=== PATIENT | male | born 1970 | race Caucasian/White ===

== ENCOUNTER 2022-07-14 09:23 | Observation (INO) | payer BC ==
[2022-07-14] MEDS ORDERED: KETOROLAC 15 MG/ML 1 ML VIAL IVP STA (09:54)
[2022-07-14] MEDS ORDERED: LABETALOL 5 MG/ML VIAL MDV IVP STA ×2 (09:55→12:34)
[2022-07-14] MEDS ORDERED: hydrALAZINE HCL 20 MG/ML 1 ML VIAL IVP STA ×2 (09:55→10:58)
--- NOTE | 2022-07-14 09:58 | ED ---
General Adult HPI - General Chief complaint: Abdominal Pain Stated complaint: hypertension Time Seen by Provider: 07/14/22 09:25 Source: patient, EMS, RN notes reviewed, old records reviewed Mode of arrival: EMS Limitations: no limitations - History of Present Illness Initial comments: This is a 52-year-old male with a past medical history significant for high blood pressure. Patient states he was on medicine years ago but he stopped it never followed back up. Patient does not currently have a physician. Patient comes in today because he was having some lower back pain on the left for the last week. Patient states started after he was doing some raking in the ER. Patient states anytime he moves is worse. Patient states as he lies still there is no pain. Patient denies any numbness or weakness. Patient denies any dysuria hematuria urinary frequency. Patient went to the clinic to be looked at and they told him that he had high blood pressure so the clinic sent him to be seen in the emergency department. Patient denies any chest pain difficulty breathing shortest breath. Patient denies any lightheadedness dizziness or near syncopal episode. Patient denies any nausea vomiting or diarrhea. Patient denies any history of diabetes or high cholesterol. Patient denies any smoking history. Patient denies family history of heart disease. - Related Data Home Medications Medication Instructions Recorded Confirmed Apple Cider Vinegar Gummy 2 cap PO DAILY 07/14/22 07/14/22 Multivitamins, Thera [Multivitamin 1 tab PO DAILY 07/14/22 07/14/22 (formulary)] Allergies Allergy/AdvReac Type Severity Reaction Status Date / Time No Known Allergies Allergy Verified 07/14/22 12:32 Review of Systems ROS Statement: Those systems with pertinent positive or pertinent negative responses have been documented in the HPI. ROS Other: All systems not noted in ROS Statement are negative. Past Medical History Past Medical History: Hypertension Additional Past Medical History / Comment(s): Gout Past Surgical History: No Surgical Hx Reported Smoking Status: Former smoker Past Alcohol Use History: Occasional Past Drug Use History: Marijuana General Exam - General Exam Comments Initial Comments: GENERAL: Patient is well-developed and well-nourished. Patient is nontoxic and well- hydrated and is in mild distress. ENT: Neck is soft and supple. No significant lymphadenopathy is noted. Oropharynx is clear. Moist mucous membranes. Neck has full range of motion without eliciting any pain. EYES: The sclera were anicteric and conjunctiva were pink and moist. Extraocular movements were intact and pupils were equal round and reactive to light. Eyelids were unremarkable. PULMONARY: Unlabored respirations. Good breath sounds bilaterally. No audible rales rhonchi or wheezing was noted. CARDIOVASCULAR: There is a regular rate and rhythm without any murmurs gallops or rubs. ABDOMEN: Soft and nontender with normal bowel sounds. SKIN: Skin is clear with no lesions or rashes and otherwise unremarkable. NEUROLOGIC: Patient is alert and oriented x3. Cranial nerves II through XII are grossly intact. Motor and sensory are also intact. Normal speech, volume and content. Symmetrical smile. MUSCULOSKELETAL: Normal extremities with adequate strength and full range of motion. No lower extremity swelling or edema. No calf tenderness. Patient had no reproducible back pain on palpation. Patient sat up in bed did not elicit any back pain pat ient twist left and right and did not elicit any back pain. Patient states that was unusual. LYMPHATICS: No significant lymphadenopathy is noted PSYCHIATRIC: Normal psychiatric evaluation. Limitations: no limitations Course Vital Signs 07/14/22 07/14/22 07/14/22 09:27 09:37 10:41 Temperature 98.3 F Pulse Rate 83 83 Respiratory 18 18 Rate Blood Pressure 192/130 178/119 184/121 O2 Sat by Pulse 97 97 Oximetry 07/14/22 12:00 Temperature Pulse Rate 90 Respiratory 18 Rate Blood Pressure 180/117 O2 Sat by Pulse Oximetry Medical Decision Making - Medical Decision Making Chest x-ray was interpreted by me. Chest x-ray shows no acute abnormality. Patient was given hydralazine 20 mg IV and they patient's blood pressure did not improve much. Patient had a repeat dose of 20 mg hydralazine again he came down a little bit but not much per patient remained asymptomatic however. EKG was interpreted by me that shows sinus rhythm at 95 bpm IA interval 160 QRS is 94 QT interval 342 QTC is 395. Patient's EKG shows no ST segment elevation or depression. I gave the patient 20 mg labetalol and blood pressure did not improve and at this point time I felt it safest to keep the patient in the hospital and get his blood pressure control and he'll come up with a primary medical care doctor which he does not have so that he continued continued getting his blood pressure medications and be monitored. Patient remained asymptomatic at the ED stay. I spoke with sounds physician's agreed to admit the patient and the patient wrote admitting orders - Lab Data Result diagrams: 07/14/22 10:05 07/14/22 10:05 Lab Results 07/14/22 07/14/22 07/14/22 Range/Units 10:05 10:05 10:05 WBC 4.0 (3.8-10.6) k/uL RBC 4.51 (4.30-5.90) m/uL Hgb 14.6 (13.0-17.5) gm/dL Hct 41.6 (39.0-53.0) % MCV 92.2 (80.0-100.0) fL MCH 32.3 (25.0-35.0) pg MCHC 35.1 (31.0-37.0) g/dL RDW 13.7 (11.5-15.5) % Plt Count 128 L (150-450) k/uL MPV 7.9 Neutrophils % 69 % Lymphocytes % 22 % Monocytes % 5 % Eosinophils % 1 % Basophils % 1 % Neutrophils # 2.7 (1.3-7.7) k/uL Lymphocytes # 0.9 L (1.0-4.8) k/uL Monocytes # 0.2 (0-1.0) k/uL Eosinophils # 0.0 (0-0.7) k/uL Basophils # 0.0 (0-0.2) k/uL PT 10.4 (9.0-12.0) sec INR 1.0 (<1.2) APTT 22.0 (22.0-30.0) sec Sodium 144 (137-145) mmol/L Potassium 4.1 (3.5-5.1) mmol/L Chloride 113 H (98-107) mmol/L Carbon Dioxide 23 (22-30) mmol/L Anion Gap 8 mmol/L BUN 7 L (9-20) mg/dL Creatinine 0.66 (0.66-1.25) mg/dL Est GFR (CKD-EPI)AfAm >90 (>60 ml/min/1.73 sqM) Est GFR (CKD-EPI)NonAf >90 (>60 ml/min/1.73 sqM) Glucose 102 H (74-99) mg/dL Calcium 8.4 (8.4-10.2) mg/dL Magnesium 1.7 (1.6-2.3) mg/dL Total Bilirubin 0.6 (0.2-1.3) mg/dL AST 44 (17-59) U/L ALT 40 (4-49) U/L Alkaline Phosphatase 70 (38-126) U/L Troponin I (0.000-0.034) ng/mL Total Protein 6.6 (6.3-8.2) g/dL Albumin 4.1 (3.5-5.0) g/dL Urine Color Urine Appearance (Clear) Urine pH (5.0-8.0) Ur Specific [place] (1.001-1.035) Urine Protein (Negative) Urine Glucose (UA) (Negative) Urine Ketones (Negative) Urine Blood (Negative) Urine Nitrite (Negative) Urine Bilirubin (Negative) Urine Urobilinogen (<2.0) mg/dL Ur Leukocyte Esterase (Negative) 07/14/22 07/14/22 Range/Units 10:05 10:05 WBC (3.8-10.6) k/uL RBC (4.30-5.90) m/uL Hgb (13.0-17.5) gm/dL Hct (39.0-53.0) % MCV (80.0-100.0) fL MCH (25.0-35.0) pg MCHC (31.0-37.0) g/dL RDW (11.5-15.5) % Plt Count (150-450) k/uL MPV Neutrophils % % Lymphocytes % % Monocytes % % Eosinophils % % Basophils % % Neutrophils # (1.3-7.7) k/uL Lymphocytes # (1.0-4.8) k/uL Monocytes # (0-1.0) k/uL Eosinophils # (0-0.7) k/uL Basophils # (0-0.2) k/uL PT (9.0-12.0) sec INR (<1.2) APTT (22.0-30.0) sec Sodium (137-145) mmol/L Potassium (3.5-5.1) mmol/L Chloride (98-107) mmol/L Carbon Dioxide (22-30) mmol/L Anion Gap mmol/L BUN (9-20) mg/dL Creatinine (0.66-1.25) mg/dL Est GFR (CKD-EPI)AfAm (>60 ml/min/1.73 sqM) Est GFR (CKD-EPI)NonAf (>60 ml/min/1.73 sqM) Glucose (74-99) mg/dL Calcium (8.4-10.2) mg/dL Magnesium (1.6-2.3) mg/dL Total Bilirubin (0.2-1.3) mg/dL AST (17-59) U/L ALT (4-49) U/L Alkaline Phosphatase (38-126) U/L Troponin I <0.012 (0.000-0.034) ng/mL Total Protein (6.3-8.2) g/dL Albumin (3.5-5.0) g/dL Urine Color Yellow Urine Appearance Clear (Clear) Urine pH 7.0 (5.0-8.0) Ur Specific [place] 1.014 (1.001-1.035) Urine Protein Negative (Negative) Urine Glucose (UA) Negative (Negative) Urine Ketones Negative (Negative) Urine Blood Negative (Negative) Urine Nitrite Negative (Negative) Urine Bilirubin Negative (Negative) Urine Urobilinogen <2.0 (<2.0) mg/dL Ur Leukocyte Esterase Negative (Negative) Critical Care Time Critical Care Time: Yes Total Critical Care Time: 35 Disposition Clinical Impression: Hypertensive urgency, Lumbar strain Disposition: ADMITTED IP TO THIS [facility] Time of Disposition: 13:05
[2022-07-14 10:17] LABS: Basophils % (A) 1 %; Eosinophils % (A) 1 %; HCT 41.6 % (39.0-53.0); HGB 14.6 gm/dL (13.0-17.5); Lymphocytes # (A) 0.9 k/uL (1.0-4.8); Lymphocytes % (A) 22 %; MCH 32.3 pg (25.0-35.0); MCHC 35.1 g/dL (31.0-37.0); MCV 92.2 fL (80.0-100.0); Mean Platelet Volume 7.9; Monocytes # (A) 0.2 k/uL (0-1.0); Monocytes % (A) 5 %; Neutrophils # (A) 2.7 k/uL (1.3-7.7); Neutrophils % (A) 69 %; Platelet Count 128 k/uL (150-450); RBC 4.51 m/uL (4.30-5.90); RDW 13.7 % (11.5-15.5)
[2022-07-14 10:28] LABS: Prothrombin Time 10.4 sec (9.0-12.0)
[2022-07-14 10:29] LABS: ALT 40 U/L (4-49); AST 44 U/L (17-59); African American GFR (CKD) >90 (>60 ml/min/1.73 sqM); Albumin 4.1 g/dL (3.5-5.0); Alkaline Phosphatase 70 U/L (38-126); Anion Gap 8 mmol/L; Blood Urea Nitrogen 7 mg/dL (9-20); Calcium 8.4 mg/dL (8.4-10.2); Carbon Dioxide 23 mmol/L (22-30); Chloride 113 mmol/L (98-107); Glucose 102 mg/dL (74-99); Magnesium 1.7 mg/dL (1.6-2.3); Non-African American GFR(CKD) >90 (>60 ml/min/1.73 sqM); Potassium 4.1 mmol/L (3.5-5.1); Sodium 144 mmol/L (137-145); Total Bilirubin 0.6 mg/dL (0.2-1.3); Total Protein 6.6 g/dL (6.3-8.2)
--- NOTE | 2022-07-14 10:38 | XR ---
EXAMINATION TYPE: XR chest 2V DATE OF EXAM: 07/14/2022 COMPARISON: None INDICATION: Elevated blood pressure TECHNIQUE: Frontal and lateral views of the chest are obtained. FINDINGS: The heart size is normal. The pulmonary vasculature is normal. The lungs are clear. IMPRESSION: 1. No acute pulmonary process.
[2022-07-14 11:45] LABS: Appearance,Urine Clear (Clear); Bilirubin,Urine Negative (Negative); Blood,Urine Negative (Negative); Color,Urine Yellow; Glucose,Urine (UA) Negative (Negative); Ketones,Urine Negative (Negative); Leukocyte Esterase,Urine Negative (Negative); Nitrite,Urine Negative (Negative); Protein,Urine Negative (Negative); Specific Gravity,Urine 1.014 (1.001-1.035); Urobilinogen,Urine <2.0 mg/dL (<2.0)
--- NOTE | 2022-07-14 14:18 | P.HPIM ---
History of Present Illness H&P Date: 07/14/22 History of Presenting Illness: Patient is a very pleasant 52-year-old male with a past medical history of high blood pressure, gout and daily alcohol abuse. He presented to the emergency department with a chief complaint of right flank pain. Patient reports he has been experiencing intermittent pain in his right flank over the past couple of months and was concerned something was wrong with his liver. Patient denied having any fevers, chills, headache, lightheadedness, dizziness, chest pain, palpitations, shortness of breath, cough, congestion, nausea, vomiting, difficu lties with her changes in urinary or bowel function, or experiencing any numbness/tingling/weakness/swelling in his extremities. He reports drinking approximately 6 tall boys per day and reports that he has been drinking since high school but daily for the past 30 years. Patient reports his last drink was yesterday evening and states this is a wakeup call and would like to stop drinking. Upon arrival to the emergency department patient was found to be hypertensive with blood pressure 192/130 and heart rate of 90. EKG was completed showing sinus rhythm at [address] depression in inferior leads II and aVF. CBC revealed thrombocytopenia with platelet count of 128. Coagulation profile and CMP showing no significant abnormalities. Troponin negative at less than 0.012. Chest x-ray negative for acute cardiopulmonary process. Patient reported resolution of previously reported right flank pain. He was given labetalol and hydralazine in the emergency department showing minimal improvement of blood pressure decreasing to 180/117. Patient was admitted under our services with consultation to cardiology. Review of systems: Pertinent positives and negatives as discussed in HPI, a complete review of systems was performed and all other systems are negative. Physical exam: General: Nontoxic, appears stated age, mild distress as patient was diaphoretic and appears anxious and fidgety. Derm: Skin warm, diaphoretic normal coloration for ethnicity. Head: Atraumatic, normocephalic and symmetric. Eyes: EOMs intact, no lid lag, and anicteric sclera Mouth: no lip lesions, mucus membranes moist Cardiovascular: regular rate and rhythm with normal S1S2, no murmur, positive po sterior tibial pulses bilaterally, and cap refill < 2 seconds. Lungs: Respirations even, regular, and unlabored on room air. Lungs CTA bilaterally, no rhonchi, no rales, no wheezing, and no accessory muscle usage. Abdominal: soft, nontender to palpation, no guarding, no appreciable organomegaly. No CVA tenderness. Ext: ROM intact. No gross muscle atrophy, no edema, no contractures Neuro: Speech clear, face symmetrical and CN II-XII grossly intact with no noted focal neuro deficits Psych: Alert and oriented to person, place, time, and situation. Patient appears anxious and fidgety with mild tremor noted to left hand. Assessment and Plan of Care: Alcohol dependence with acute withdrawal Thrombocytopenia likely secondary to above -WA Protocol with symptom triggered medication management with benzodiazepines. -Continuous IV hydration. -Thiamine 100 mg twice a day -Multivitamin daily -Folate 1 mg daily -Seizure, fall, aspiration, and elopement precautions in place. -Consult to case management for assistance in providing patient available resources for inpatient rehabilitation Center versus outpatient community resources. -Continued close monitoring of electrolytes and replace as needed. -Telemetry monitoring. Hypertensive urgency -Hypertensive urgency likely secondary to alcohol withdrawal, however patient does report underlying history of hypertension. -We will treat patient for acute alcohol withdrawal and start patient on amlodipine 5 mg daily. -Continuous telemetry monitoring and Monitor vital signs closely. -Cardiology was consulted. The patient is admitted with an anticipated less than quesada 2 midnight stay for evaluation of hypertensive urgency and alcohol withdrawal CODE STATUS: Full code DVT prophylaxis: heparin Discussed with: patient and RN Anticipated discharge date: 1-[address]: Home versus inpatient rehab A total of 45 minutes was spent on the care of this complex patient more than 50% of the time was spent in counseling and care coordination. I reviewed the documentation as provided by the RIKI above, who is the original author of this note. I agree with the documented assessment and plan, with the following changes: none Past Medical History Past Medical History: Hypertension Additional Past Medical History / Comment(s): Gout Past Surgical History: No Surgical Hx Reported Smoking Status: Former smoker Past Alcohol Use History: Occasional Past Drug Use History: Marijuana Medications and Allergies Home Medications Medication Instructions Recorded Confirmed Type Apple Cider Vinegar Gummy 2 cap PO DAILY 07/14/22 07/14/22 History Multivitamins, Thera [Multivitamin 1 tab PO DAILY 07/14/22 07/14/22 History (formulary)] Losartan [Cozaar] 50 mg PO DAILY 30 Days #30 tab 07/16/22 Rx Metoprolol Tartrate [Lopressor] 50 mg PO BID 30 Days #60 tab 07/16/22 Rx amLODIPine [Norvasc] 10 mg PO DAILY 30 Days #30 tab 07/16/22 Rx hydrOXYzine HCL [Atarax] 50 mg PO Q6H PRN #60 tablet 07/16/22 Rx Allergies Allergy/AdvReac Type Severity Reaction Status Date / Time No Known Allergies Allergy Verified 07/14/22 12:32 Physical Exam Vitals: Vital Signs Temp Pulse Resp BP Pulse Ox 07/14/22 13:26 160/117 07/14/22 12:00 90 18 180/117 07/14/22 10:41 184/121 07/14/22 09:37 83 18 178/119 97 07/14/22 09:27 98.3 F 83 18 192/130 97 Intake and Output 07/13/22 07/14/22 07/14/22 22:59 06:59 14:59 Other: Weight 124.738 kg Results CBC & Chem 7: 07/14/22 10:05 07/14/22 10:05 Labs: Abnormal Lab Results - Last 24 Hours (Table) 07/14/22 07/14/22 Range/Units 10:05 10:05 Plt Count 128 L (150-450) k/uL Lymphocytes # 0.9 L (1.0-4.8) k/uL Chloride 113 H (98-107) mmol/L BUN 7 L (9-20) mg/dL Glucose 102 H (74-99) mg/dL
[2022-07-14] MEDS ORDERED: LORazepam 1 MG TAB PO PRN ×4 (14:19)
[2022-07-14] MEDS ORDERED: LORazepam 2 MG/ML INJ IV PRN (14:19)
[2022-07-14] MEDS ORDERED: LORazepam 0.5 MG TAB PO PRN (14:19)
[2022-07-14] MEDS ORDERED: THIAMINE 100 MG/ML 2 ML VIAL IM STA (14:19)
[2022-07-14] MEDS: SODIUM CHLORIDE 0.9% 1,000 ML IV SCH ×3 (15:08→23:59)
[2022-07-14] MEDS: MAGNESIUM SULFATE-D5W PMX 1 GM in DEXTROSE/WATER 1 100ML.BAG IVPB SCH ×2 (15:08→17:39)
[2022-07-14] MEDS: amLODIPine 5 MG TAB PO SCH (17:40)
[2022-07-14] MEDS: KETOROLAC 15 MG/ML 1 ML VIAL IVP SCH ×2 (17:40→23:59)
[2022-07-14] MEDS ORDERED: cloNIDine HCL 0.2 MG TAB PO PRN (22:18)
[2022-07-14] MEDS: HEPARIN SODIUM,PORCINE/PF 5,000 UNIT/0.5 ML SYRINGE SQ SCH (23:58)
[2022-07-15] MEDS: KETOROLAC 15 MG/ML 1 ML VIAL IVP SCH ×4 (06:55→22:56)
[2022-07-15] MEDS: SODIUM CHLORIDE 0.9% 1,000 ML IV SCH ×2 (06:56→20:29)
[2022-07-15] MEDS: amLODIPine 5 MG TAB PO SCH (08:27)
[2022-07-15] MEDS: METOPROLOL TARTRATE 50 MG TAB PO SCH ×3 (08:27→20:29)
[2022-07-15] MEDS: MULTIVITAMINS, THERA 1 EACH TAB PO SCH (08:27)
[2022-07-15] MEDS: THIAMINE 100 MG TAB PO SCH (08:27)
[2022-07-15] MEDS: FOLIC ACID 1 MG TAB PO SCH (08:27)
[2022-07-15] MEDS: HEPARIN SODIUM,PORCINE/PF 5,000 UNIT/0.5 ML SYRINGE SQ SCH ×3 (08:27→22:56)
--- NOTE | 2022-07-15 10:20 | P.CRDCN ---
History of Present Illness History of present illness: HISTORY OF PRESENTING ILLNESS This is a pleasant 52-year-old male past medical history significant for hypertension, daily alcohol use. 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 We have been asked to see in consultation for hypertensive urgency. Patient presents emergency department with complaints of right flank pain. He states that he has been intermittently, on and off for a few months. He denies any chest pain, shortness of breath, lightheadedness, dizziness, palpitations, nausea, vomiting, fever, cough or chills. He currently drinks 6 beers daily, tall boys. Drinking alcohol daily for about 30 years. He does endorse a history of hypertension as previously on medications but stop taking his meds. He currently has not seen a provider in many years. He denies any history of CAD, [place], stroke, diabetes. He is a former tobacco smoker. Denies any known family history of coronary disease. On admission patient's blood pressure was significantly elevated at 190s/100s. He was given IV labetalol and started on amlodipine 5 mg daily DIAGNOSTICS * EKG reveals sinus rhythm, heart rate 95, some mild ST depression in leads II and aVF. No prior EKG to compare * Telemetry tracings indicate sinus rhythm * Chest xray no acute cardiopulmonary process * Laboratory reviewed, troponins negative, platelet count 128, sodium 144, potassium 4.1, BUN 7, serum creatinine 0.6, magnesium 1.7 * Current home medications include a multivitamin and apple cider vinegar gummies REVIEW OF SYSTEMS At the time of my exam: CONSTITUTIONAL: Denies fever or chills. +right flank pain CARDIOVASCULAR: Denies chest pain, shortness of breath, orthopnea, PND or palpitations. RESPIRATORY: Denies cough. GASTROINTESTINAL: Denies abdominal pain, diarrhea, constipation, nausea or vomiting. MUSCULOSKELETAL: Denies myalgias. NEUROLOGIC: Denies numbness, tingling, headacbe or weakness. ENDOCRINE: Denies fatigue, weight change, polydipsia or polyurina. GENITOURINARY: Denies burning, hematuria or urgency with micturation. HEMATOLOGIC: Denies history of anemia or bleeding. PHYSICAL EXAMINATION Blood pressure 146/98, heart rate 70, afebrile, saturations 98% on room air CONSTITUTIONAL: No apparent distress. HEENT: Head is normocephalic. Pupils are equal, round. Sclerae anicteric. Mucous membranes of the mouth are moist. No JVD. No carotid bruit. CHEST EXAMINATION: Lungs are clear to auscultation. No chest wall tenderness is noted on palpation or with deep breathing. HEART EXAMINATION: Regular rate and rhythm. S1, S2 heard. No murmurs, gallops or rub. ABDOMEN: Soft, nontender. Positive bowel sounds. EXTREMITIES: 2+ peripheral pulses, no lower extremity edema and no calf tenderness. NEUROLOGIC EXAMINATION: Patient is awake, alert and oriented x3. ASSESSMENT Hypertensive urgency Right flank pain Alcohol dependence PLAN Start metoprolol tartrate 50mg TID Continue amlodipine Obtain 2D echocardiogram and doppler study to assess cardiac structure and function. Recommend outpatient follow up, stress test can be completed as an outpatient Thank you kindly for this consultation Nurse practitioner note has been reviewed by physician. Signing provider agrees with the documented findings, assessment, and plan of care. Past Medical History Past Medical History: Hypertension Additional Past Medical History / Comment(s): Gout History of Any Multi-Drug Resistant Organisms: None Reported Past Surgical History: No Surgical Hx Reported Smoking Status: Former smoker Past Alcohol Use History: Occasional Past Drug Use History: Marijuana Medications and Allergies Home Medications Medication Instructions Recorded Confirmed Type Apple Cider Vinegar Gummy 2 cap PO DAILY 07/14/22 07/14/22 History Multivitamins, Thera [Multivitamin 1 tab PO DAILY 07/14/22 07/14/22 History (formulary)] Allergies Allergy/AdvReac Type Severity Reaction Status Date / Time No Known Allergies Allergy Verified 07/14/22 12:32 Physical Exam Vitals: Vital Signs Temp Pulse Pulse Resp BP BP Pulse Ox 07/15/22 02:03 98.2 F 72 17 144/88 98 07/14/22 22:02 98.1 F 77 18 199/111 98 07/14/22 21:14 171/110 07/14/22 19:54 172/114 07/14/22 18:57 181/119 07/14/22 17:00 171/117 07/14/22 16:00 176/123 07/14/22 15:00 83 18 182/114 97 07/14/22 13:26 160/117 07/14/22 12:00 90 18 180/117 07/14/22 10:41 184/121 07/14/22 09:37 83 18 178/119 97 07/14/22 09:27 98.3 F 83 18 192/130 97 Intake and Output 07/14/22 07/15/22 07/15/22 22:59 06:59 14:59 Other: # Voids 1 1 Weight 124.738 kg Results 07/14/22 10:05 07/14/22 10:05 Cardiac Enzymes 07/14/22 07/14/22 Range/Units 10:05 10:05 AST 44 (17-59) U/L Troponin I <0.012 (0.000-0.034) ng/mL Coagulation 07/14/22 Range/Units 10:05 PT 10.4 (9.0-12.0) sec APTT 22.0 (22.0-30.0) sec CBC 07/14/22 Range/Units 10:05 WBC 4.0 (3.8-10.6) k/uL RBC 4.51 (4.30-5.90) m/uL Hgb 14.6 (13.0-17.5) gm/dL Hct 41.6 (39.0-53.0) % Plt Count 128 L (150-450) k/uL Comprehensive Metabolic Panel 07/14/22 Range/Units 10:05 Sodium 144 (137-145) mmol/L Potassium 4.1 (3.5-5.1) mmol/L Chloride 113 H (98-107) mmol/L Carbon Dioxide 23 (22-30) mmol/L BUN 7 L (9-20) mg/dL Creatinine 0.66 (0.66-1.25) mg/dL Glucose 102 H (74-99) mg/dL Calcium 8.4 (8.4-10.2) mg/dL AST 44 (17-59) U/L ALT 40 (4-49) U/L Alkaline Phosphatase 70 (38-126) U/L Total Protein 6.6 (6.3-8.2) g/dL Albumin 4.1 (3.5-5.0) g/dL Current Medications Generic Name Dose Route Start Last Admin Trade Name Freq PRN Reason Stop Dose Admin Amlodipine Besylate 5 mg 07/14/22 16:30 07/14/22 17:40 Amlodipine 5 Mg Tab PO 5 mg DAILY BOLIVAR Administration Clonidine 0.2 mg 07/14/22 22:18 07/14/22 22:45 Clonidine Hcl 0.2 Mg Tab PO 0.2 mg QID PRN Administration Blood Pressure - High Folic Acid 1 mg 07/15/22 09:00 Folic Acid 1 Mg Tab PO DAILY BOLIVAR Heparin Sodium (Porcine) 5,000 unit 07/15/22 00:00 07/14/22 23:58 Heparin Sodium,Porcine/Pf 5,000 Unit/0.5 Ml Syringe SQ 5,000 unit Q8HR BOLIVAR Administration Sodium Chloride 1,000 mls @ 130 mls/hr 07/14/22 14:45 07/15/22 06:56 Saline 0.9% IV 130 mls/hr .[id number] BOLIVAR Administration Ketorolac Tromethamine 15 mg 07/14/22 18:00 07/15/22 06:55 Ketorolac 15 Mg/Ml 1 Ml Vial IVP 07/17/22 13:08 Not Given Q6HR BOLIVAR Lorazepam 0.5 mg 07/14/22 14:19 Lorazepam 0.5 Mg Tab PO Q4HR PRN Ciwa 4 To 5 Lorazepam 1 mg 07/14/22 14:19 07/14/22 16:27 Lorazepam 1 Mg Tab PO 1 mg Q4HR PRN Administration Ciwa 6 To 7 Lorazepam 2 mg 07/14/22 14:19 Lorazepam 1 Mg Tab PO Q2HR PRN Ciwa 10 or greater Lorazepam 2 mg 07/14/22 14:19 Lorazepam 1 Mg Tab PO Q3HR PRN Ciwa 8 To 9 Lorazepam 1 mg 07/14/22 14:19 Lorazepam 1 Mg Tab PO Q1HR PRN Alcohol Withdrawal Lorazepam 2 mg 07/14/22 14:19 Lorazepam 2 Mg/Ml Inj IV Q6HR PRN Seizures Multivitamins 1 each 07/15/22 09:00 Multivitamins, Thera 1 Each Tab PO DAILY BOLIVAR Thiamine HCl 100 mg 07/15/22 09:00 Thiamine 100 Mg Tab PO DAILY BOLIVAR Intake and Output 07/14/22 07/15/22 07/15/22 22:59 06:59 14:59 Other: # Voids 1 1 Weight 124.738 kg 07/14/22 10:05 07/14/22 10:05
--- NOTE | 2022-07-15 18:54 | P.PN ---
Subjective Progress Note Date: 07/15/22 Hospital course: Patient is a very pleasant 52-year-old male with a past medical history of high blood pressure, gout and daily alcohol abuse. He presented to the emergency department with a chief complaint of right flank pain. Patient reports he has been experiencing intermittent pain in his right flank over the past couple of months and was concerned something was wrong with his liver. Patient denied having any fevers, chills, headache, lightheadedness, dizziness, chest pain, palpitations, shortness of breath, cough, congestion, nausea, vomiting, difficulties with her changes in urinary or bowel function, or experiencing any numbness/tingling/weakness/swelling in his extremities. He reports drinking approximately 6 tall boys per day and reports that he has been drinking since high school but daily for the past 30 years. Patient reports his last drink was yesterday evening and states this is a wakeup call and would like to stop drinking. Upon arrival to the emergency department patient was found to be hypertensive with blood pressure 192/130 and heart rate of 90. EKG was completed showing sinus rhythm at [address] depression in inferior leads II and aVF. CBC revealed thrombocytopenia with platelet count of 128. Coagulation profile and CMP showing no significant abnormalities. Troponin negative at less than 0.012. Chest x-ray negative for acute cardiopulmonary process. Patient reported resolution of previously reported right flank pain. He was given labetalol and hydralazine in the emergency department showing minimal improvement of blood pressure decreasing to 180/117. Patient was admitted under our services with consultation to cardiology. He was monitored overnight and troponins were trended all negative at less than 0.0123 draws. Blood pressures continue to be elevated but she'll improvement this morning at 146/98. Cardiology evaluated and admitted metoprolol 50 mg twice a day to current medication regimen. Physical exam: Patient seen and fully evaluated at bedside this morning. He currently reports that pain in right side/flank remains resolved. Patient states that he feels anxious and fidgety but denies having any other complaints at this time. Blood pressures continue to be elevated but showing improvement this morning at 146/98. Cardiology evaluated and admitted metoprolol 50 mg twice a day to current medication regimen and ordered for echocardiogram to be completed. General: Nontoxic, appears stated age, no acute distress. Derm: Skin warm, diaphoretic normal coloration for ethnicity. Head: Atraumatic, normocephalic and symmetric. Eyes: EOMs intact, no lid lag, and anicteric sclera Mouth: no lip lesions, mucus membranes moist Cardiovascular: regular rate and rhythm with normal S1S2, no murmur, positive posterior tibial pulses bilaterally, and cap refill < 2 seconds. Lungs: Respirations even, regular, and unlabored on room air. Lungs CTA bilaterally, no rhonchi, no rales, no wheezing, and no accessory muscle usage. Abdominal: soft, nontender to palpation, no guarding, no appreciable o rganomegaly. No CVA tenderness. Ext: ROM intact. No gross muscle atrophy, no edema, no contractures Neuro: Speech clear, face symmetrical and CN II-XII grossly intact with no noted focal neuro deficits. No tremors noted. Psych: Alert and oriented to person, place, time, and situation. Patient reports feeling anxious and fidgety. Assessment and Plan of Care: Alcohol dependence with acute withdrawal Thrombocytopenia likely secondary to above -[facility] Protocol with symptom triggered medication management with benzodiazepines. -Continuous IV hydration. -Thiamine 100 mg twice a day -Multivitamin daily -Folate 1 mg daily -Seizure, fall, aspiration, and elopement precautions in place. -Consult to case management for assistance in providing patient available resources for inpatient rehabilitation Center versus outpatient community resources. -Continued close monitoring of electrolytes and replace as needed. -Telemetry monitoring. Hypertensive urgency -Hypertensive urgency likely secondary to alcohol withdrawal, however patient does report underlying history of hypertension. -We will treat patient for acute alcohol withdrawal and start patient on amlodipine 5 mg daily. -Continuous telemetry monitoring and Monitor vital signs closely. -Cardiology was consulted. CODE STATUS: Full code DVT prophylaxis: heparin Discussed with: patient and RN Anticipated discharge date: Later today versus tomorrow pending echocardiogram results. Anticipated discharge place: Home versus inpatient rehab A total of 33 minutes was spent on the care of this complex patient more than 50% of the time was spent in counseling and care coordination. I reviewed the documentation as provided by the RIKI above, who is the original author of this note. I agree with the documented assessment and plan, with the following changes: none Objective - Vital Signs Vital signs: Vital Signs Temp 97.8 F 07/15/22 16:31 Pulse 73 07/15/22 16:31 Resp 20 07/15/22 16:31 BP 172/110 11/30/22 16:31 Pulse Ox 95 07/15/22 16:31 FiO2 Intake & Output 07/14/22 07/15/22 07/15/22 18:59 06:59 18:59 Weight 124.738 kg 124.738 kg Other: # Voids 1 2 - Labs CBC & Chem 7: 07/14/22 10:05 07/14/22 10:05
[2022-07-15] MEDS ORDERED: amLODIPine 5 MG TAB PO STA (18:56)
--- NOTE | 2022-07-15 21:19 | CA ---
Transthoracic Echo Report Name: John Looney Age: 52 Gender: M : 1970 Exam Date: 07/15/2022 10:55 Exam Location: [place] [facility] Ht (in): 74 Wt (lb): 274 Ordering Physician: Cecilia Romero Attending/Referring Phys: Obstetrics Gynecology Md Annalee Cevallos, TANVI Procedure CPT: Indications: hypertensive urgency, etoh Cardiac Hx: Technical Quality: Contrast 1: Total Dose (mL): Contrast 2: Total Dose (mL): MEASUREMENTS (Male / Female) Normal Values 2D ECHO LV Diastolic Diameter PLAX 5.2 cm 4.2 - 5.9 / 3.9 - 5.3 cm LV Systolic Diameter PLAX 3.5 cm IVS Diastolic Thickness 1.4 cm 0.6 - 1.0 / 0.6 - 0.9 cm LVPW Diastolic Thickness 1.6 cm 0.6 - 1.0 / 0.6 - 0.9 cm LV Relative Wall Thickness 0.6 RV Internal Dim ED PLAX 3.1 cm LA Systolic Diameter LX 3.7 cm 3.0 - 4.0 / 2.7 - 3.8 cm M-MODE Aortic Root Diameter MM 4.1 cm LA Systolic Diameter MM 4.1 cm LA Ao Ratio MM 1.0 MV E Point Septal Separation 0.6 cm AV Cusp Separation MM 2.9 cm DOPPLER MV Area PHT 5.7 cm??? Mitral E Point Velocity 52.7 cm/s Mitral A Point Velocity 86.3 cm/s Mitral E to A Ratio 0.6 MV Deceleration Time 134.0 ms MV E' Velocity 7.4 cm/s Mitral E to MV E' Ratio 7.1 FINDINGS Left Ventricle Moderately increased septal wall thickness. Left ventricular ejection fraction is estimated at 55% left ventricular cavity size normal. Right Ventricle Normal right ventricular size and function. Right ventricular systolic pressure within normal limits. Right Atrium Normal right atrial size. Left Atrium Mildly increased left atrial area. Mitral Valve Structurally normal mitral valve. Mild mitral regurgitation. Aortic Valve Trileaflet aortic valve. Tricuspid Valve Structurally normal tricuspid valve. Pulmonic Valve Structurally normal pulmonic valve. Trace to mild pulmonic regurgitation. Pericardium Small pericardial effusion. Aorta Normal size aortic root and proximal ascending aorta. CONCLUSIONS Normal LV size and systolic function. Mild mitral and tricuspid insufficiency. Cannot exclude small to trivial pericardial effusion. Previewed by: Dr. Alexander Dobbs MD (Electronically Signed) Final Date: 15 July 2022 21:19
[2022-07-16] MEDS: SODIUM CHLORIDE 0.9% 1,000 ML IV SCH (06:08)
[2022-07-16] MEDS: KETOROLAC 15 MG/ML 1 ML VIAL IVP SCH ×2 (06:08→13:26)
[2022-07-16 08:18] VITALS: RESP 20
[2022-07-16] MEDS: FOLIC ACID 1 MG TAB PO SCH (08:33)
[2022-07-16] MEDS: MULTIVITAMINS, THERA 1 EACH TAB PO SCH (08:33)
[2022-07-16] MEDS: THIAMINE 100 MG TAB PO SCH (08:34)
[2022-07-16] MEDS: HEPARIN SODIUM,PORCINE/PF 5,000 UNIT/0.5 ML SYRINGE SQ SCH (08:35)
[2022-07-16] MEDS ORDERED: METOPROLOL TARTRATE 50 MG TAB PO SCH (09:00)
[2022-07-16] MEDS ORDERED: LOSARTAN 50 MG TAB PO SCH (09:00)
[2022-07-16] MEDS ORDERED: amLODIPine 10 MG TAB PO SCH (09:00)
--- NOTE | 2022-07-16 09:53 | P.PN ---
Subjective This is a pleasant 52-year-old male past medical history significant for hypertension, daily alcohol use. He does not follow with medical billing coordinator. We have been asked to see in consultation for hypertensive urgency. Patient presents emergency department with complaints of right flank pain. He states that he has been intermittently, on and off for a few months. He denies any chest pain, shortness of breath, lightheadedness, dizziness, palpitations, nausea, vomiting, fever, cough or chills. He currently drinks 6 beers daily, tall boys. Drinking alcohol daily for about 30 years. He does endorse a history of hypertension as previously on medications but stop taking his meds. He currently has not seen a provider in many years. He denies any history of CAD, [place], stroke, diabetes. He is a former tobacco smoker. Denies any known family history of coronary disease. On admission patient's blood pressure was significantly elevated at 190s/100s. He was given IV labetalol and started on amlodipine 5 mg daily 07/16/2022 Patient seen and examined at bedside. No acute distress. Denies any chest pain or shortness of breath. BP has improved, but elevated 170/97. Amlodipine increased to 10mg daily. Echocardiogram revealed EF 55%, mild MR, mild TR PHYSICAL EXAMINATION Vitals reviewed CONSTITUTIONAL: No apparent distress. HEENT: Head is normocephalic. No JVD. CHEST EXAMINATION: Lungs are clear to auscultation. No chest wall tenderness is noted on palpation or with deep breathing. HEART EXAMINATION: Regular rate and rhythm. S1, S2 heard. No murmurs, gallops or rub. ABDOMEN: Soft, nontender. Positive bowel sounds. EXTREMITIES: 2+ peripheral pulses, no lower extremity edema and no calf tenderness. NEUROLOGIC EXAMINATION: Patient is awake, alert and oriented x3. ASSESSMENT Hypertensive urgency Right flank pain Alcohol dependence PLAN Continue amlodipine at 10mg daily Decrease metoprolol 50mg BID Add Losartan 50mg daily Echo obtained and reviewed. Recommend outpatient follow up, stress test can be completed as an outpatient Discharge per primary and clearance from other consultants Please re-consult if needed. Nurse practitioner note has been reviewed by physician. Signing provider agrees with the documented findings, assessment, and plan of care. Objective - Vital Signs Vital signs: Vital Signs Temp 97.5 F L 07/16/22 07:00 Pulse 61 07/16/22 07:00 Resp 20 07/16/22 07:00 BP 170/97 07/16/22 07:00 Pulse Ox 97 07/16/22 07:00 FiO2 Intake & Output 07/15/22 07/16/22 07/16/22 18:59 06:59 18:59 Other: # Voids 2 1 - Labs CBC & Chem 7: 07/14/22 10:05 07/14/22 10:05
[2022-07-16 14:31] VITALS: BP 134/87; PULSE 69; TEMP 97.6
--- NOTE | 2022-07-16 16:26 | P.DS ---
Providers Date of admission: 07/14/22 13:06 Expected date of discharge: 07/16/22 Attending physician: Traci Smallwood MD Consults: 07/14/22 13:05 Consult Physician Urgent Consulting Provider: [facility] Consult Reason/Comments: Hypertensive urgency Do you want consulting provider notified?: Yes Primary care physician: Mehdi [facility] [facility] Hospital Course: Discharge Diagnosis: Alcohol dependence with acute withdrawal. Thrombocytopenia likely secondary to above. Hypertensive urgency. Hospital Course: Patient is a very pleasant 52-year-old male with a past medical history of high blood pressure, gout and daily alcohol abuse. He presented to the emergency department with a chief complaint of right flank pain. Patient reports he has been experiencing intermittent pain in his right flank over the past couple of months and was concerned something was wrong with his liver. Patient denied having any fevers, chills, headache, lightheadedness, dizziness, chest pain, palpitations, shortness of breath, cough, congestion, nausea, vomiting, difficulties with her changes in urinary or bowel function, or experiencing any numbness/tingling/weakness/swelling in his extremities. He reports drinking approximately 6 tall boys per day and reports that he has been drinking since high school but daily for the past 30 years. Patient reports his last drink was yesterday evening and states this is a wakeup call and would like to stop drinking. Upon arrival to the emergency department patient was found to be hypertensive with blood pressure 192/130 and heart rate of 90. EKG was completed showing sinus rhythm at [address] depression in inferior leads II and aVF. CBC revealed thrombocytopenia with platelet count of 128. Coagulation profile and CMP showing no significant abnormalities. Troponin negative at less than 0.012. Chest x-ray negative for acute cardiopulmonary process. Patient reported resolution of previously reported right flank pain. He was given labetalol and hydralazine in the emergency department showing minimal improvement of blood pressure decreasing to 180/117. Patient was admitted under our services with consultation to cardiology. He was monitored overnight and troponins were trended all negative at less than 0.0123 draws. Blood pressures continue to be elevated despite metoprolol, losartan, and amlodipine. Echocardiogram revealed EF of 55% with mild mitral and tricuspid insufficiency. Cardiology recommended outpatient follow-up in our office once blood pressure falls below 160 systolic. Discussed with RN that hypertensive urgency is multifactorial and due to underlying hypertension but also acute alcohol withdrawal. RN administered 2 mg of Ativan as advised. Patient had significant improvement in anxiety and blood pressure decreasing from 170/97 down to 134/87. Patient declining inpatient rehab at this time and requesting discharge home. Patient strongly advised against any and all alcohol use. Patient given information on outpatient resources available to him. Patient provided with prescription for hydroxyzine to be taken as needed for anxiety. Patient also instructed to monitor blood pressures closely taken twice daily and documenting a daily log/journal and bring with him to his next doctor's appointment as adjustments may be needed to his current blood pressure medication regimen. Patient to follow up outpatient with PCP in 1-2 days and with cardiology in 2 weeks. Physical exam: General: Nontoxic, appears stated age, no acute distress. Derm: Skin warm, diaphoretic normal coloration for ethnicity. Head: Atraumatic, normocephalic and symmetric. Eyes: EOMs intact, no lid lag, and anicteric sclera Mouth: no lip lesions, mucus membranes moist Cardiovascular: regular rate and rhythm with normal S1S2, no murmur, positive posterior tibial pulses bilaterally, and cap refill < 2 seconds. Lungs: Respirations even, regular, and unlabored on room air. Lungs CTA bilaterally, no rhonchi, no rales, no wheezing, and no accessory muscle usage. Abdominal: soft, nontender to palpation, no guarding, no appreciable organomegaly. No CVA tenderness. Ext: ROM intact. No gross muscle atrophy, no edema, no contractures Neuro: Speech clear, face symmetrical and CN II-XII grossly intact with no noted focal neuro deficits. No tremors noted. Psych: Alert and oriented to person, place, time, and situation. Patient reports feeling anxious and fidgety. A total of 35 minutes of time were spent preparing this complex discharge summary. Pt was discharged on 07/16/22 at 4:25 PM. I reviewed the documentation as provided by the RIKI above, who is the original author of this note. I agree with the documented assessment and plan, with the following changes: none Patient Condition at Discharge: Stable Plan - Discharge Summary New Discharge Prescriptions: New Losartan [Cozaar] 50 mg PO DAILY 30 Days #30 tab amLODIPine [Norvasc] 10 mg PO DAILY 30 Days #30 tab hydrOXYzine HCL [Atarax] 50 mg PO Q6H PRN #60 tablet PRN Reason: Anxiety Metoprolol Tartrate [Lopressor] 50 mg PO BID 30 Days #60 tab Continue Apple Cider Vinegar Gummy 2 cap PO DAILY Multivitamins, Thera [Multivitamin (formulary)] 1 tab PO DAILY Discharge Medication List Apple Cider Vinegar Gummy 2 cap PO DAILY 07/14/22 [History] Multivitamins, Thera [Multivitamin (formulary)] 1 tab PO DAILY 07/14/22 [History] Losartan [Cozaar] 50 mg PO DAILY 30 Days #30 tab 07/16/22 [Rx] Metoprolol Tartrate [Lopressor] 50 mg PO BID 30 Days #60 tab 07/16/22 [Rx] amLODIPine [Norvasc] 10 mg PO DAILY 30 Days #30 tab 07/16/22 [Rx] hydrOXYzine HCL [Atarax] 50 mg PO Q6H PRN #60 tablet 07/16/22 [Rx] Follow up Appointment(s)/Referral(s): Alexander Dobbs MD [STAFF PHYSICIAN] - 2 Weeks Mehdi Sosa DO [Primary Care Provider] - 07/20/22 9:30 am (Will be seen by a MASTER ELECTRICIAN Javy Cuellar) Patient Instructions/Handouts: Abuse of Alcohol (DC), Alcohol Withdrawal (DC), Hypertensive Crisis (DC), Hypertension (DC) Activity/Diet/Wound Care/Special Instructions: Activity: As tolerated. Take breaks as needed. Diet: Heart healthy and carb consistent diet. Avoid salts, or foods with hidden salts such as canned or boxed foods and frozen dinners. Extra salt makes your heart work harder and traps the fluid in your body for longer. Special Instructions: Take all of your medications as directed and remember to keep all of your doctor's appointments and follow-up as needed. Please avoid any and all alcoholic beverages. Good luck on your journey towards sobriety. It is important to monitor blood pressure twice daily and document these findings and a daily log/journal to bring with you to your next doctor's appoi ntment. Additional changes may be needed to your blood pressure medication regimen. Thank you for allowing us to participate in your care, it was truly a pleasure having you for our patient!!! Discharge/Stand Alone Forms: AA Meetings [place], Outpatient Counseling, Inp Substance Abuse Facilities Discharge Disposition: HOME SELF-CARE
== END 2022-07-16 16:50 | disposition home or self-care (01) ==
LOC: EC 09:23 → 6NMEDSUR 13:06
PROVIDERS: ADMIT Family Medicine; ATTEND Family Medicine
DX: F10.230 Alcohol dependence with withdrawal, uncomplicated (principal); D69.59 Other secondary thrombocytopenia; I16.0 Hypertensive urgency; S39.012A Strain of muscle, fascia and tendon of lower back, initial encounter; I10 Essential (primary) hypertension; M10.9 Gout, unspecified; I31.39 Other pericardial effusion (noninflammatory); I37.1 Nonrheumatic pulmonary valve insufficiency; I34.0 Nonrheumatic mitral (valve) insufficiency; F12.90 Cannabis use, unspecified, uncomplicated; Z87.891 Personal history of nicotine dependence; Z79.899 Other long term (current) drug therapy; X50.3XXA Overexertion from repetitive movements, initial encounter; Y93.H1 Activity, digging, shoveling and raking
CPT/HCPCS: 96361 ×2; 96372 ×3; 96376; 96365; 96366; 96375; 99285; 36415; 93005; 93306; 80053; 83735; 84484; 85025; 85610; 85730; 81003; 71046; G0378 ×3; J0360; J3411; J3475; J1885; J1644 ×2

== ENCOUNTER 2024-01-20 10:20 | Emergency (ER) | payer BC ==
[2024-01-20] MEDS: amLODIPine 10 MG TAB PO STA (11:06)
[2024-01-20 11:52] LABS: Basophils % (A) 0 %; Eosinophils # (A) 0.1 k/uL (0-0.7); Eosinophils % (A) 1 %; HCT 43.1 % (39.0-53.0); Lymphocytes # (A) 1.2 k/uL (1.0-4.8); Lymphocytes % (A) 24 %; MCH 31.2 pg (25.0-35.0); MCHC 34.7 g/dL (31.0-37.0); MCV 89.9 fL (80.0-100.0); Mean Platelet Volume 8.1; Monocytes # (A) 0.3 k/uL (0-1.0); Monocytes % (A) 7 %; Neutrophils # (A) 3.4 k/uL (1.3-7.7); Neutrophils % (A) 66 %; Platelet Count 171 k/uL (150-450); RDW 13.1 % (11.5-15.5); WBC 5.2 k/uL (3.8-10.6)
[2024-01-20 12:06] LABS: African American GFR (CKD) >90 (>60 ml/min/1.73 sqM); Anion Gap 7 mmol/L; Blood Urea Nitrogen 14 mg/dL (9-20); Calcium 9.6 mg/dL (8.4-10.2); Carbon Dioxide 25 mmol/L (22-30); Chloride 106 mmol/L (98-107); Glucose 93 mg/dL (74-99); Non-African American GFR(CKD) >90 (>60 ml/min/1.73 sqM); Potassium 4.4 mmol/L (3.5-5.1); Sodium 138 mmol/L (137-145)
[2024-01-20 12:29] VITALS: PULSE 63
--- NOTE | 2024-01-20 12:57 | ED ---
General Adult HPI - General Chief complaint: Dizziness Stated complaint: Hypertension Time Seen by Provider: 01/20/24 10:50 Source: patient, RN notes reviewed, old records reviewed Mode of arrival: ambulatory Limitations: no limitations - History of Present Illness Initial comments: Patient is a 53-year-old male who presents emergency department complaining of hypertension. He felt lightheaded yesterday and checked his blood pressure. Was elevated with systolics in the 170s. States he checked it again today and while he was asymptomatic, pressure was still elevated in the 150s to 160s. Presents for further evaluation at this time. Denies any chest pain or shortness of breath. Denies lightheadedness currently. Denies headache. D enies abdominal pain, nausea, vomiting. States he was previously diagnosed with hypertension and prescribed antihypertensive medications which he has not taken in a few months. Does not follow-up with her PCP. Presents for further evaluation at this time. Previously had hypertensive urgency, which is why he presents with his for evaluation. - Related Data Previous Rx's Medication Instructions Recorded amLODIPine [Norvasc] 10 mg PO DAILY 30 Days #30 tablet 01/20/24 Allergies Allergy/AdvReac Type Severity Reaction Status Date / Time No Known Allergies Allergy Verified 01/20/24 11:32 Review of Systems ROS Statement: Those systems with pertinent positive or pertinent negative responses have been documented in the HPI. Review of Systems: CONST: Denies fever EYES: Denies blurry vision ENT: Denies nasal congestion C/V: Denies Chest pain RESP: Denies shortness of breath GI: Denies abdominal pain : Denies dysuria SKIN: Denies rash. MSK: Denies joint pain. NEURO: Denies headache ROS Other: All systems not noted in ROS Statement are negative. Past Medical History Past Medical History: Hypertension Additional Past Medical History / Comment(s): Gout History of Any Multi-Drug Resistant Organisms: None Reported Past Surgical History: No Surgical Hx Reported Smoking Status: Former smoker Past Alcohol Use History: Occasional Past Drug Use History: Marijuana General Exam - General Exam Comments Initial Comments: General: Appears in no acute distress. HEAD: Normal with no signs of head trauma. EYES: PERRLA, EOMI, conjunctiva normal, no discharge. ENT: Hearing grossly intact, normal oropharynx. RESPIRATORY: Clear breath sounds bilaterally. No wheezes, rales, or rhonchi. C/V: Regular rate and rhythm. S1 and S2 auscultated, no edema, peripheral pulses 2+ and intact throughout ABD: Abd is soft, nontender, nondistended EXT: Normal range of motion, no obvious deformity SKIN: No rashes or lesions observed on exposed skin. NEURO: Alert and oriented x 4. GCS of 15. No focal deficits. Limitations: no limitations Course Vital Signs 01/20/24 01/20/24 01/20/24 10:24 11:01 12:26 Temperature 97.6 F 97.8 F 98.4 F Pulse Rate 73 62 63 Respiratory 16 16 16 Rate Blood Pressure 177/110 154/108 149/102 O2 Sat by Pulse 99 97 97 Oximetry Medical Decision Making - Medical Decision Making Was pt. sent in by a medical professional or institution (, PA, HOUSEKEEPING ASSOCIATE, urgent care, hospital, or shelter...) When possible be specific @ -No Did you speak to anyone other than the patient for history (EMS, parent, family, police, friend...)? What history was obtained from this source @ -No Did you review nursing and triage notes (agree or disagree)? Why? @ -I reviewed and agree with nursing and triage notes Were old charts reviewed (outside hosp., previous admission, EMS record, old EKG, old radiological studies, urgent care reports/EKG's, shelter records)? Report findings @ -No old charts were reviewed Differential Diagnosis (chest pain, altered mental status, abdominal pain women, abdominal pain men, vaginal bleeding, weakness, fever, dyspnea, syncope, headache, dizziness, GI bleed, back pain, seizure, CVA, palpatations, mental health, musculoskeletal)? @ -Uncontrolled hypertension, CKD, electrolyte abnormality. This list is not all inclusive. EKG interpreted by me (3pts min.). @ -As above X-rays interpreted by me (1pt min.). @ -None done CT interpreted by me (1pt min.). @ -None done U/S interpreted by me (1pt. min.). @ -None done What testing was considered but not performed or refused? (CT, X-rays, U/S, labs)? Why? @ -None What meds were considered but not given or refused? Why? @ -None Did you discuss the management of the patient with other professionals (professionals i.e. , PA, HOUSEKEEPING ASSOCIATE, lab, RT, psych nurse, social welfare administrator, assistant professor of history, teacher, employment officer, immigration case worker)? Give summary @ -No Was smoking cessation discussed for >3mins.? @ -No Was critical care preformed (if so, how long)? @ -No Were there social determinants of health that impacted care today? How? (Homelessness, low income, unemployed, alcoholism, drug addiction, transportation, low edu. Level, literacy, decrease access to med. care, penitentiary, re hab)? @ -No Was there de-escalation of care discussed even if they declined (Discuss DNR or withdrawal of care, Hospice)? DNR status @ -No What co-morbidities impacted this encounter? (DM, HTN, Smoking, COPD, CAD, Cancer, CVA, ARF, Chemo, Hep., AIDS, mental health diagnosis, sleep apnea, morbid obesity)? @ -Hypertension, medication noncompliance Was patient admitted / discharged? Hospital course, mention meds given and route, prescriptions, significant lab abnormalities, going to OR and other pertinent info. @ -Patient presents emergency department with hypertension. Currently is asymptomatic. Vital signs within acceptable limits. We will obtain basic labs as well as screening EKG. He will be given a dose of his normal Norvasc but has been off all hide antihypertensive medications for multiple months. I will only start this medication at this time and he can continue other medications after follow-up with PCP. He was in agreement this plan. Currently asymptomatic. Blood pressure is improved at this time. Laboratory studies unremarkable. EKG shows no signs of acute ischemia. Patient jaimie asymptomatic. We reviewed his workup. Recommended follow-up with PCP for good blood pressure monitoring as well as keeping a blood pressure log. Patient was in agreement this plan. I will provide the patient with a prescription for Norvasc. I instructed the patient to follow up with their PCP in the next 1-3 days.. I explained that the patient should return to the emergency department if they experience any worsening symptoms. Strict return precautions were discussed with the patient. The patient expressed understanding of these instructions. I answered all questions that the patient had. The patient was discharged home in good condition with their prescriptions and follow up information. Undiagnosed new problem with uncertain prognosis? @ -No Drug Therapy requiring intensive monitoring for toxicity (Heparin, Nitro, Insulin, Cardizem)? @ -No Were any procedures done? @ -No Diagnosis/symptom? @ -Medication noncompliance, hypertension Acute, or Chronic, or Acute on Chronic? @ -Acute on chronic Uncomplicated (without systemic symptoms) or Complicated (systemic symptoms)? @ -Uncomplicated Side effects of treatment? @ -No Exacerbation, Progression, or Severe Exacerbation? @ -No Poses a threat to life or bodily function? How? (Chest pain, [place], [place], pneumonia, PE, COPD, DKA, ARF, appy, cholecystitis, CVA, Diverticulitis, Homicidal, Suicidal, threat to staff... and all critical care pts) @ -Potentially, if uncontrolled it can contribute and cause CKD among other issues. - Lab Data Result diagrams: 01/20/24 11:10 01/20/24 11:10 Lab Results 01/20/24 01/20/24 Range/Units 11:10 11:10 WBC 5.2 (3.8-10.6) k/uL RBC 4.80 (4.30-5.90) m/uL Hgb 15.0 (13.0-17.5) gm/dL Hct 43.1 (39.0-53.0) % MCV 89.9 (80.0-100.0) fL MCH 31.2 (25.0-35.0) pg MCHC 34.7 (31.0-37.0) g/dL RDW 13.1 (11.5-15.5) % Plt Count 171 (150-450) k/uL MPV 8.1 Neutrophils % 66 % Lymphocytes % 24 % Monocytes % 7 % Eosinophils % 1 % Basophils % 0 % Neutrophils # 3.4 (1.3-7.7) k/uL Lymphocytes # 1.2 (1.0-4.8) k/uL Monocytes # 0.3 (0-1.0) k/uL Eosinophils # 0.1 (0-0.7) k/uL Basophils # 0.0 (0-0.2) k/uL Sodium 138 (137-145) mmol/L Potassium 4.4 (3.5-5.1) mmol/L Chloride 106 (98-107) mmol/L Carbon Dioxide 25 (22-30) mmol/L Anion Gap 7 mmol/L BUN 14 (9-20) mg/dL Creatinine 0.69 (0.66-1.25) mg/dL Est GFR (CKD-EPI)AfAm >90 (>60 ml/min/1.73 sqM) Est GFR (CKD-EPI)NonAf >90 (>60 ml/min/1.73 sqM) Glucose 93 (74-99) mg/dL Calcium 9.6 (8.4-10.2) mg/dL - EKG Data -: EKG Interpreted by Me EKG Comments: 12-lead Electrocardiogram Interpretation Note EKG was reviewed and interpreted by myself. 12-lead ECG performed at 132 is interpreted by me as revealing normal sinus rhythm at a rate of 64 beats per minute. [place] is normal. NC interval is 154 ms, QRS duration is 95 ms, QTc is 380 ms.. There were no obvious acute ST or T wave abnormalities to suggest myocardial ischemia or injury. R wave progression across the precordium was satisfactory. By my interpretation this EKG is non-diagnostic for acute ischemia. Disposition Clinical Impression: Hypertension, Noncompliance with medication regimen Disposition: HOME SELF-CARE Condition: Good Instructions (If sedation given, give patient instructions): Hypertension (ED) Prescriptions: amLODIPine [Norvasc] 10 mg PO DAILY 30 Days #30 tablet Is patient prescribed a controlled substance at d/c from ED?: No Referrals: Mehdi Sosa DO [Primary Care Provider] - 1-2 days Time of Disposition: 12:57
[2024-01-20 13:19] VITALS: BP 157/105; RESP 20; TEMP 98.5
== END 2024-01-20 13:19 | disposition home or self-care (01) ==
LOC: EC 10:20
DX: I10 Essential (primary) hypertension (principal); Z91.128 Patient's intentional underdosing of medication regimen for other reason; Z87.891 Personal history of nicotine dependence
CPT/HCPCS: 36415; 80048; 85025; 93005; 99284

== ENCOUNTER → 2024-02-16 | Outpatient (CLI) | payer BC ==
--- NOTE | 2024-02-16 09:56 | US ---
EXAMINATION TYPE: US abdomen limited DATE OF EXAM: 02/16/2024 COMPARISON: NONE CLINICAL INDICATION: Male, 53 years old with history of R10.13 EPIGASTRIC PAIN; Patient states discom fort in epigastric region TECHNIQUE: Multiple sonographic images of the right upper quadrant are obtained. FINDINGS: EXAM MEASUREMENTS: Liver Length: 16.6 cm Gallbladder Wall: 0.19 cm CBD: 0.25 cm Right Kidney: 11.9 x 6.2 x 5.7 cm CRUSHER MACHINE OPERATOR NOTES: Suboptimal due to patient body habitus Pancreas: Obscured by bowel gas Liver: appears wnl Gallbladder: wnl Evidence for sonographic Carmona's sign: No CBD: wnl Right Kidney: wnl The pancreas is obscured by overlying bowel gas. The liver appears within normal limits without evide nce for focal lesion or cirrhotic morphology. Gallbladder demonstrates no wall thickening, surroundin g fluid, or stones. Negative sonographic Carmona sign. Common bile duct is within normal limits. Right kidney is unremarkable without evidence for hydronephrosis, nephrolithiasis, or solid mass. IMPRESSION: No ultrasound evidence for an acute process.
== END | disposition home or self-care (01) ==
LOC: RADUSWWP 07:37
PROVIDERS: ATTEND Family Medicine
DX: R10.13 Epigastric pain (principal)
CPT/HCPCS: 76705

== ENCOUNTER 2024-05-10 06:25 | Day surgery (SDC) | payer BC ==
[2024-05-10] MEDS: IV FLUID CONTINUATION 1,000 ML IV ONE (06:47)
[2024-05-10] MEDS: LACTATED RINGERS 1,000 ML IV SCH (06:59)
[2024-05-10 07:04] VITALS: RESP 16; TEMP 98
[2024-05-10] MEDS ORDERED: PROPOFOL 10 MG/ML 20 ML VIAL IV ONE (07:23)
[2024-05-10] MEDS ORDERED: LIDOCAINE 2% (PF) 20 MG/ML 5 ML VIAL ONE (07:23)
--- NOTE | 2024-05-10 07:44 | P.PCN ---
Date of Procedure: 05/10/24 Procedure(s) Performed: Brief history: Patient is a pleasant 54-year-old white male scheduled for an elective upper endoscopy as well as colonoscopy as a part of evaluation of longstanding history of GERD and screening for colon cancer Procedure performed: Esophagogastroduodenoscopy with biopsy Colonoscopy Preoperative diagnosis: Longstanding history of GERD Screening for colon cancer Anesthesia: MAC Procedure: After informed consent was obtained from the patient was brought into the endoscopy unit and IV sedation was administered by anesthesia under continuous monitoring. Initially upper endoscopy was done. The Olympus GF 160 video endoscope was inserted inserted into the mouth and esophagus intubated without any difficulty and was gradually advanced into the stomach and duodenum and carefully examined. The bulb and second part of the duodenum appeared normal. The scope was then withdrawn into the stomach adequately insufflated with air and upon careful examination the antrum had mild mottling of the mucosa consistent with gastritis and biopsies were done from this area. Because of the body, cardia and fundus appeared normal. The scope was then withdrawn into the esophagus. The GE junction was located at 40 cm to the incisors. It appeared regular with no erythema erosions or ulcerations. Rest of the esophagus appeared normal. Patient tolerated the procedure well. At this time the patient continued to remain sedation. Initial digital rectal examination was normal. Olympus CF 160 video colonoscope was then inserted into the rectum and gradually advanced to the cecum without any difficulty. Careful examination was performed as the scope was gradually being withdrawn. The prep was excellent. The cecum, ascending colon, transverse colon, descending colon, sigmoid colon and rectum appeared normal. Retroflexion was performed in the rectum and no lesions were noted. Patient tolerated the procedure well. Impression: 1. Upper endoscopy revealed mild mottling of the mucosa in the antrum consistent with gastritis but no evidence of esophagitis or Villafuerte's esophagus 2. Colonoscopy was within normal limits with no evidence of colorectal neoplasia Recommendations: Findings of this examination were discussed with the patient as well as his family. With the biopsy results. Continue with omeprazole 20 mg daily and follow antireflux measures he was advised to have repeat screening colonoscopy in 10 years.
[2024-05-10 08:09] VITALS: BP 145/91; PULSE 72
== END 2024-05-10 08:24 | disposition home or self-care (01) ==
LOC: ORWHC2ENDO 06:25
PROVIDERS: ATTEND Internal Medicine Gastroenterology
DX: K29.50 Unspecified chronic gastritis without bleeding (principal); K21.9 Gastro-esophageal reflux disease without esophagitis; Z12.11 Encounter for screening for malignant neoplasm of colon; Z79.899 Other long term (current) drug therapy
CPT/HCPCS: 43239; 45378; 88305